=== PATIENT | male | born 1995 | race Caucasian/White ===

== ENCOUNTER 2017-02-17 15:41 | Emergency (ER) | payer SELFPAY ==
[~2017-02-17] VITALS: Ht 177.8 cm; Wt 83.9 kg
[2017-02-17 15:51] VITALS: BP 124/71
== END 2017-02-17 18:49 | disposition home or self-care (01) ==
LOC: ER 15:47
DX: S62.511A Displaced fracture of proximal phalanx of right thumb, initial encounter for closed fracture (principal); W19.XXXA Unspecified fall, initial encounter; Y93.89 Activity, other specified; Y92.89 Other specified places as the place of occurrence of the external cause; Y99.8 Other external cause status
CPT/HCPCS: 29125; 73130